=== PATIENT | female | born 1985 | race Caucasian/White ===

== ENCOUNTER 2020-09-22 10:11 | Emergency (ER) | payer OTHER ==
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
[2020-09-22 12:09] VITALS: BP 123/68; TEMP 98.5; O2SAT 100
== END 2020-09-22 12:00 | disposition home or self-care (01) ==
LOC: ER 10:11
DX: T23.101A Burn of first degree of right hand, unspecified site, initial encounter (principal); T25.111A Burn of first degree of right ankle, initial encounter; T31.0 Burns involving less than 10% of body surface; X10.0XXA Contact with hot drinks, initial encounter; Y92.512 Supermarket, store or market as the place of occurrence of the external cause; Y99.8 Other external cause status
CPT/HCPCS: 99282

== ENCOUNTER 2022-10-09 05:53 | Emergency (ER) | payer BC, OTHER ==
--- NOTE | 2022-10-09 07:33 | RAD REPORT ---
EXAM DESCRIPTION: US - Abdomen Exam Limited - 10/09/2022 7:22 am CLINICAL HISTORY: ABD PAIN COMPARISON: No comparisons FINDINGS: The gallbladder demonstrates multiple gallstones. No pericholecystic fluid or gallbladder wall thickening. The common bile duct is prominent measuring 7-8 mm. The liver demonstrates no findings of intrahepatic biliary dilatation. IMPRESSION: Cholelithiasis. Common bile duct is dilated for age measuring 7-8 mm. Recommend followup MRCP.
[2022-10-09 07:48] LABS: Absolute Lymphocytes (CBC) 1.1 K/uL (0.7-4.9); Lymphocytes % 13.1 % (15.3-44.8); MCV 84.5 fL (80-100); MPV 9.1 fL (7.6-11.3); Platelets 280 thou/uL (152-406); RBC Red Blood Cell Count 4.38 M/uL (3.86-4.86)
[2022-10-09 08:05] LABS: Albumin 3.6 g/dL (3.4-5.0); Bilirubin Total 0.6 mg/dL (0.2-1.0); Potassium 4.2 mEq/L (3.5-5.1); Protein, Total 7.6 g/dL (6.4-8.2)
[2022-10-09] MEDS ORDERED: NA CHLORIDE 0.9% 1,000 ML ONE (08:09)
[2022-10-09] MEDS ORDERED: ONDANSETRON 4 MG/2 ML VIAL ONE (08:09)
[2022-10-09] MEDS ORDERED: FENTANYL CITR 100 MCG/2 ML ONE (08:09)
[2022-10-09] MEDS ORDERED: FAMOTIDINE 20 MG/2 ML VIAL IV ONE (08:10)
[2022-10-09 08:37] LABS: Specific Gravity 1.021 (1.005-1.030)
[2022-10-09 08:39] LABS: Specific Gravity 1.021 (1.005-1.030); Urine Bacteria None Seen /HPF (<20); Urine Bilirubin NEGATIVE (Negative); Urine Blood Negative (Negative); Urine Clarity Clear (Clear); Urine Color Light-Yellow (Yellow); Urine Glucose NEGATIVE (Negative); Urine Mucus Slight /HPF (None Seen); Urine Protein TRACE (Negative); Urine RBC <5 /HPF (None Seen); Urine Urobilinogen Normal (Normal)
--- NOTE | 2022-10-09 10:24 | RAD REPORT ---
EXAM DESCRIPTION: MRI - Cholangiogram - 10/09/2022 10:09 am CLINICAL HISTORY: cholelithiasis Abdominal pain. COMPARISON: No comparisons FINDINGS: Three-dimensional MRCP was performed using maximum intensity projection reconstruction on the same work station. Small gallstones are present in the gallbladder. Gallbladder appears mildly distended. Common bile du ct is mildly dilated measuring up to 9 mm. Distal common bile duct demonstrates abrupt change in nik kala, typically indicating the presence of a stone or a stricture. The pancreatic duct is not patholog ically dilated. Limited T2 sequences through the abdomen demonstrates no bulky adenopathy, significant free fluid or abscess. IMPRESSION: Cholelithiasis. There is dilatation of common bile duct measuring 9 mm. There is abrupt caliber change of the distal common duct probably representing impacted stone or a stricture. ERCP may be helpful.
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
--- NOTE | 2022-10-09 11:03 | ER ---
Nurse's Notes [facility] Name: Bhavna Garza Age: 37 yrs Sex: Female : 1985 Arrival Date: 10/09/2022 Time: 05:53 Bed 19 Private MD: Diagnosis: Choledocholithiasis, abdominal pain Presentation: 10/09 06:48 Chief complaint: Patient states: PER PARENT "SHE'S HAVING A GALLBLADDER ATTACK. WE WANT pf1 YOU TO CALL THE SURGEON TO REMOVE IT.". Coronavirus screen: At this time, the client does not indicate any symptoms associated with coronavirus-19. Ebola Screen: No symptoms or risks identified at this time. Initial Sepsis Screen: Does the patient meet any 2 criteria? No. Patient's initial sepsis screen is negative. Does the patient have a suspected source of infection? No. Patient's initial sepsis screen is negative. Risk Assessment: Do you want to hurt yourself or someone else? Patient reports no desire to harm self or others. Onset of symptoms was October 09, 2022 at 02:00. 06:48 Method Of Arrival: Wheelchair pf1 06:48 Acuity: JUDITH 3 pf1 Triage Assessment: 06:49 General: Appears uncomfortable, obese, Behavior is cooperative, appropriate for age, pf1 anxious. Pain: Complains of pain in abdomen. EENT: No deficits noted. Neuro: No deficits noted. Cardiovascular: No deficits noted. Respiratory: No deficits noted. GI: Reports epigastric pain. : No signs and/or symptoms were reported regarding the genitourinary system. Derm: No signs and/or symptoms reported regarding the dermatologic system. Musculoskeletal: No deficits noted. Historical: - Allergies: 06:49 No Known Allergies; pf1 - Home Meds: 06:49 None [Active]; pf1 - PMHx: 06:49 None; pf1 - Immunization history:: Adult Immunizations up to date. - Social history:: Smoking status: Patient denies any tobacco usage or history of. Screenin:30 [facility] ED Fall Risk Assessment (Adult) History of falling in the last 3 months, rs5 including since admission No falls in past 3 months (0 pts) Confusion or Disorientation No (0 pts) Intoxicated or Sedated No (0 pts) Impaired Gait No (0 pts) Mobility Assist Device Used No (0 pt) Altered Elimination No (0 pt) Score/Fall Risk Level 0 - 2 = Low Risk Oriented to surroundings. Abuse screen: Denies threats or abuse. Nutritional screening: No deficits noted. Tuberculosis screening: No symptoms or risk factors identified. Assessment: 07:30 General: Appears in no apparent distress. uncomfortable, Behavior is calm, cooperative. rs5 Pain: Complains of pain in mid-epigastric Pain does not radiate. Pain currently is 5 out of 10 on a pain scale. Quality of pain is described as burning, aching, gnawing, Pain began 4 hours ago. Is intermittent. Neuro: Level of Consciousness is awake, alert, obeys commands, Oriented to person, place, time, situation. Cardiovascular: Heart tones S1 S2 Rhythm is regular. Respiratory: Airway is patent Respiratory effort is even, unlabored, Respiratory pattern is regular, symmetrical, Breath sounds are clear bilaterally. GI: Abdomen is round non-distended, Stools are reported to be normal. Last BM was October 09, 2022. at 05:00. Last meal was October 08, 2022. at 19:30. Bowel sounds present X 4 quads. Abd is soft X 4 quads Abd is non tender X 4 quads Reports nausea, Patient currently denies vomiting. : No signs and/or symptoms were reported regarding the genitourinary system. EENT: No signs and/or symptoms were reported regarding the EENT system. Derm: Skin is pink, warm \\T\\ dry. Musculoskeletal: Range of motion: intact in all extremities. 08:15 Reassessment: Patient is alert, oriented x 3, equal unlabored respirations, skin rs5 warm/dry/pink. Patient states feeling better. Patient reports 3/10 mid-epigastric pain. Quality of pain is described as burning, gnawing. 10:13 Reassessment: Patient is alert, oriented x 3, equal unlabored respirations, skin rs5 warm/dry/pink. Pt. back from MRI. 12:35 Reassessment: Patient is alert, oriented x 3, equal unlabored respirations, skin rs5 warm/dry/pink. Pt in bed watching television, family member at bedside. 12:53 Reassessment: Awaiting EMS for transfer, report was given to BENJAMÍN Tirado (at [address]), Rm 1509. . Vital Signs: 06:48 BP 120 / 81; Pulse 65; Resp 16; Temp 98; Pulse Ox 100% ; Weight 97.52 kg; Height 5 ft. pf1 3 in. ; 07:33 BP 106 / 64; Pulse 64; Resp 17; Temp 98.6; Pulse Ox 99% on R/A; rs5 08:00 BP 112 / 65; Pulse 63; Resp 16; Temp 97.8(O); Pulse Ox 99% on R/A; rs5 09:00 BP 102 / 59; Pulse 60; Resp 17; Pulse Ox 99% on R/A; rs5 10:04 BP 105 / 64; Pulse 53; Resp 17; Pulse Ox 98% on R/A; rs5 11:00 BP 100 / 57; Pulse 55; Resp 16; Pulse Ox 99% on R/A; rs5 12:00 BP 112 / 77; Pulse 60; Resp 17; Pulse Ox 99% on R/A; rs5 06:48 Body Mass Index 38.09 (97.52 kg, 160.02 cm) pf1 ED Course: 05:53 Patient arrived in ED. ag3 06:08 Rob Abreu MD is Attending Physician. rachel 06:49 Triage completed. pf1 06:49 Arm band placed on. pf1 07:05 Attending Physician role handed off by Rob Abreu MD sp3 07:05 Meghan Webb MD is Attending Physician. sp3 07:19 Jack Vance, RN is Primary Nurse. rs5 07:23 US Abdomen Limited In Process Unspecified. EDMS 07:30 Patient has correct armband on for positive identification. Bed in low position. Call rs5 light in reach. Side rails up X2. 07:32 Inserted saline lock: 22 gauge in left antecubital area, using aseptic technique. Blood rs5 collected. 10:10 Cholangiogram In Process Unspecified. EDMS 11:[address] Webb the GI emerging solutions executive for [facility] with Dr. Webb for patient eb transfer consultation. 11:49 connected the hospitalist emerging solutions executive for [facility] with Dr. Webb for patient eb transfer consultation. 11:55 administrative approval given by Farooq Chow/ patient has been accepted to [facility] rm 1509/ Dr. [address]sha [address] has accepted the patient in transfer/ report to be called to [phone]. 13:40 No provider procedures requiring assistance completed. Patient transferred, IV remains rs5 in place. Administered Medications: 08:00 Drug: NS 0.9% IV 1000 ml Route: IV; Rate: 1 bolus; Site: left antecubital; aa5 10:12 Follow up: IV Status: Completed infusion; IV Intake: 1000ml rs5 08:00 Drug: fentaNYL (PF) IVP 50 mcg Route: IVP; Site: left antecubital; rs5 08:10 Follow up: No adverse reaction. Pt reports pain relief. Pt denies pain at the moment rs5 08:00 Drug: Ondansetron IVP 4 mg Route: IVP; Site: left antecubital; rs5 08:10 Follow up: No adverse reaction rs5 08:00 Drug: Famotidine IVP 20 mg Route: IVP; Site: left antecubital; rs5 08:10 Follow up: No adverse reaction rs5 10:23 Not Given (Duplicate Order): Ondansetron IVP 4 mg IVP once; over 2 minutes aa5 12:05 Drug: Piperacillin-Tazobactam IVPB 3.375 grams Route: IVPB; Infused Over: 60 mins; rs5 Site: left antecubital; 12:34 Follow up: No adverse reaction. rs5 13:05 Follow up: IV Status: Completed infusion rs5 Medication: 13:40 VIS not applicable for this client. rs5 Intake: 10:12 IV: 1000ml; Total: 1000ml. rs5 Outcome: 11:03 ER care complete, transfer ordered by MD. [email or web address] 13:39 Transferred by ground EMS to [facility], Transfer form completed. rs5 X-rays sent w/ patient. Note: Report given to [facility] 13:39 Condition: stable 13:39 Instructed on the need for transfer, Demonstrated understanding of instructions. 13:40 Patient left the ED. rs5 Signatures: Dispatcher [employer] EDMS Rob Abreu MD MD cha Calderon, Audri RN RN aa5 Angeles Luna Alice 3 Meghan Webb MD MD sp3 Sandra Pascual RN RN pf1 Jack Vance, RN RN rs5 Corrections: (The following items were deleted from the chart) 08:26 08:00 BP 112 / 65; Pulse 16bpm; Resp 63bpm; Pulse Ox 99% RA; Temp 97.8F Oral; rs5 rs5 08:36 07:32 NS 0.9% IV 1000 ml IV at 1 bolus in left antecubital rs5 aa5 09:05 08:57 Temp 103.2F Rectal; aa5 rs5 10:14 10:11 Reassessment: No changes from previously documented assessment. rs5 rs5 13:42 13:41 No adverse reaction rs5 rs5
[2022-10-09] MEDS ORDERED: NA CHLORIDE 0.9% 100 ML ONE (12:04)
[2022-10-09] MEDS ORDERED: PIPERACIL/TAZO 3.375 GM VIAL IV ONE (12:04)
[2022-10-09 14:16] VITALS: TEMP 97.8
[2022-10-09 14:24] VITALS: O2SAT 99
[2022-10-09 14:25] VITALS: BP 112/77
== END 2022-10-09 13:40 | disposition short-term general hospital (02) ==
LOC: ER 05:53
DX: K80.50 Calculus of bile duct without cholangitis or cholecystitis without obstruction (principal)
CPT/HCPCS: 96365; 96361; 85025; 81001; 36415; 81025; 83690; 80053; 74181; 76705; 96375; 99285; J2543; J3010; J2405; J7030